=== PATIENT | female | born 1960 | race Caucasian/White ===

== ENCOUNTER 2017-02-08 07:37 | Day surgery (SDC) | payer BC ==
[2017-02-08] MEDS ORDERED: LIDOCAINE 1% W/EPI 1:200,000 MPF 30ML SQ ONE (13:41)
[2017-02-08] MEDS ORDERED: BUPIVACAINE 0.5% W/EPI MPF 30 ML VIAL IVP ONE (13:41)
[2017-02-08] MEDS ORDERED: DEXAMETHASONE PRESERVATIVE FREE 10MG/ML VIAL IV ONE (13:41)
--- NOTE | 2017-02-08 15:31 | Operative Note - Ferro ---
DATE OF SURGERY: 02/08/17 PREOPERATIVE DIAGNOSIS: CERVICAL SPONDYLOSIS WITHOUT MYELOPATHY, ICD-10 CODE = M47.812. OPERATION: FLUOROSCOPICALLY-GUIDED RADIOFREQUENCY RHIZOTOMY RIGHT CERVICAL FACETS 3/4, 4/5, AND 5/6. SURGEON: AYLIN STOVALL D.O. ANESTHESIA: LOCAL SEDATION. ANESTHESIA PROVIDER: ALVARO LA CRNA. INDICATION: This patient presents with bilateral neck pain. Examination shows diffuse tenderness cervical spine. Range of motion does cause pain to the neck with extension. Diagnostic studies show multiple levels of spondylosis. A facet series had resulted up to 75-90% pain control. Due to the failure of therapy and success of facet series, patient presents today for rhizotomy for more long- term relief. Due to the revised guidelines limiting numbers of levels and bilateral technique, she is here for the right and will return for the left. PROCEDURE: Intravenous line, vital sign monitoring, IV sedation by Anesthesia, patient position prone. Sterile prep, sterile technique. Facet levels cervical spine right at 3/4, 4/5, and 5/6 were marked and infiltrated. A 20-gauge rhizotomy cannula positioned. Stimulation trials conducted. Rhizotomy burn performed. Local with anti-inflammatory into the sites. Topical antibiotics. Sterile dressing applied. We will monitor and evaluate. cc: Dr. Rose JOB NUMBER: [id number] MTDD
[2017-02-08] MEDS ORDERED: FENTANYL PF 100MCG/2ML VIAL IV ONE (15:33)
[2017-02-08] MEDS ORDERED: LIDOCAINE 2% MDV (20MG/ML) 20ML VIAL IV ONE (15:33)
[2017-02-08] MEDS ORDERED: PROPOFOL 10 MG/ML VIAL IV ONE (15:33)
[2017-02-08] MEDS ORDERED: MIDAZOLAM HCL 2MG/2ML VIAL IV ONE (15:33)
== END 2017-02-08 09:55 | disposition home or self-care (01) ==
LOC: SUR 07:37
PROVIDERS: ATTEND Pain Medicine Interventional Pain Medicine
DX: M47.812 Spondylosis without myelopathy or radiculopathy, cervical region (principal)
CPT/HCPCS: 64635; 64636 ×2; 01936; J1100; J3010

== ENCOUNTER 2017-02-22 06:50 | Day surgery (SDC) | payer BC ==
[2017-02-22] MEDS ORDERED: LIDOCAINE 1% W/EPI 1:200,000 MPF 30ML SQ ONE (10:34)
[2017-02-22] MEDS ORDERED: DEXAMETHASONE PRESERVATIVE FREE 10MG/ML VIAL IV ONE (10:34)
[2017-02-22] MEDS ORDERED: BUPIVACAINE 0.5% W/EPI MPF 30 ML VIAL IVP ONE (10:34)
--- NOTE | 2017-02-22 14:47 | Operative Note - Ferro ---
DATE OF SURGERY: 02/22/17 PREOPERATIVE DIAGNOSIS: CERVICAL SPONDYLOSIS WITHOUT MYELOPATHY, ICD-10 CODE = M47.812. OPERATION: RADIOFREQUENCY RHIZOTOMY LEFT CERVICAL FACETS 3/4, 4/5, AND 5/6. SURGEON: AYLIN STOVALL D.O. ANESTHESIA: LOCAL SEDATION. ANESTHESIA PROVIDER: ALVARO LA CRNA. INDICATION: This patient presents with primary neck pain. Examination shows tenderness in the cervical spine. Range of motion causing pain to the neck with extension. Diagnostics show multiple levels of spondylosis. A facet series 75-90 % pain control. Due to the revised guidelines limiting the number of levels and bilateral technique, she previously had the right and is here for the left. PROCEDURE: Intravenous line, vital sign monitoring, IV sedation, prepped, draped, sterile technique. Under imaging, the cervical facet levels on the left at 3/4, 4/5, and 5/6 marked and infiltrated. A 20-gauge rhizotomy cannula positioned. Stimulation trials conducted. Rhizotomy burn performed. Local with anti-inflammatory into the sites. Topical antibiotics. Sterile dressing applied. We will monitor and evaluate. cc: Dr. Rose JOB NUMBER: [id number] MTDD
[2017-02-22] MEDS ORDERED: MIDAZOLAM HCL 2MG/2ML VIAL IV ONE (15:40)
[2017-02-22] MEDS ORDERED: *PACU ONLY* KETAMINE HCL 10 MG/ML (20ML) VIAL IV ONE (15:40)
[2017-02-22] MEDS ORDERED: PROPOFOL 10 MG/ML VIAL IV ONE (15:40)
[2017-02-22] MEDS ORDERED: FENTANYL PF 100MCG/2ML VIAL IV ONE (15:40)
== END 2017-02-22 08:46 | disposition home or self-care (01) ==
LOC: SUR 06:50
PROVIDERS: ATTEND Pain Medicine Interventional Pain Medicine
DX: M47.812 Spondylosis without myelopathy or radiculopathy, cervical region (principal)
CPT/HCPCS: 64633; 64634 ×2; 01936; J1100; J3010

== ENCOUNTER 2018-08-01 10:25 | Day surgery (SDC) | payer BC ==
--- NOTE | 2018-08-01 06:48 | History and Physical - [facility] ---
CHIEF COMPLAINT/HISTORY OF CHIEF COMPLAINT: This patient presents with a history of an intractable lumbar radiculopathy. Due to the failure of therapy, a spinal cord stimulator trial was conducted on 07/12/18 with 75+% pain control. Due to the failure of all other therapies and the success of the trial , the patient for a spinal cord stimulator implant. PAST MEDICAL HISTORY: Noncontributory. PAST SURGICAL HISTORY: Eye surgery, hand surgery, and hysterectomy. EMPLOYMENT STATUS: Off-work. MEDICATIONS ON ADMISSION: List to be provided. ALLERGIES: None to medications. FAMILY/PSYCHOSOCIAL HISTORY: Social history - Caffeine. Family history - Thyroid disease, asthma, and hypertension. SYSTEMS REVIEW: The patient is appropriate in no acute distress. The remainder of the systems review is positive for glasses, headaches, and degenerative arthritis. PHYSICAL EXAMINATION: Height is 5'8", weight is 180. Vital signs - Not available. HEENT: Within normal limits. LUNGS: Clear. HEART: Rapid and regular. ABDOMEN: Nontender. MUSCULOSKELETAL: Examination of the musculoskeletal system shows diffuse tenderness throughout the lumbar spine. Range of motion does produce pain into both lower extremities across the front and back surfaces. There are mild motor and sensory abnormalities with weakness in both legs and an assistive device is used for ambulation, somewhat more right than left. NEUROLOGIC: Cranial nerves are intact. IMPRESSION: LUMBAR RADICULOPATHY, ICD-10 CODE M54.16 AND M54.17. PLAN: The patient is here for implantation of a permanent spinal cord stimulator due to a successful trial and the failure of all other therapies. The procedure will be considered outpatient, although an overnight stay will be evaluated. The potential risks, side effects, and complications have all been carefully reviewed and discussed. JOB NUMBER: [id number] [facility]
[~2018-08-01 10:25] MED LIST: ACETAMINOPHEN 1,000 MG/100 ML BTL IV ONE; CEFAZOLIN 2 Gram 2 GM/50 ML BAG IVPB ONE; FAMOTIDINE 20MG TABLET PO ONE; MECLIZINE 25 MG TABLET PO ONE; METOCLOPRAMIDE 10 MG TABLET PO ONE
[2018-08-01] MEDS ORDERED: LIDOCAINE 1% W/EPI 1:200,000 MPF 30ML SQ ONE (10:26)
[2018-08-01] MEDS ORDERED: 0.9 % SODIUM CHLORIDE 10 ML VIAL IVP ONE (10:26)
[2018-08-01] MEDS ORDERED: MIDAZOLAM HCL 2MG/2ML VIAL IV ONE (10:26)
[2018-08-01] MEDS ORDERED: PROPOFOL 10 MG/ML VIAL IV ONE (10:26)
[2018-08-01] MEDS ORDERED: BUPIVACAINE 0.5% W/EPI MPF 30 ML VIAL IVP ONE (10:26)
[2018-08-01] MEDS ORDERED: LIDOCAINE 2% MDV (20MG/ML) 20ML VIAL IV ONE (10:26)
[2018-08-01] MEDS ORDERED: CEFAZOLIN 1G VIAL IM ONE (10:26)
[2018-08-01] MEDS ORDERED: FENTANYL PF 100MCG/2ML VIAL IV ONE (10:26)
--- NOTE | 2018-08-03 08:42 | Operative Note ---
DATE: 08/01/2018. PRIMARY CARE PHYSICIAN: Lilliana Rose M.D. PREOPERATIVE DIAGNOSIS: LUMBAR RADICULOPATHY, ICD-10 CODE M54.16 AND M54.17. ANESTHESIA: Local sedation. ANESTHESIA PROVIDER: Torey Carson CRNA. PROCEDURES: 1. Fluoroscopically guided left epidural access at T11-12. Placement of spinal cord stimulator lead 1, a [place] 16 with 16 electrodes, positioned left T7. 2. Fluoroscopically guided left epidural access at T12-L1. Placement of spinal cord stimulator lead 2, a [place] [employer] 16 with 16 electrodes, positioned right T7. 3. Complex programming of lead 1 over 20 minutes followed by complex programming of lead 2 over 20 minutes. 4. Incision, subcutaneous dissection, and anchoring of leads 1 and 2 to the supraspinous fascia with a [employer] locking anchor. 5. Incision, subcutaneous dissection, and creation of subcutaneous pouch at the right posterior gluteal margin for placement of generator identified as a [employer] programmable rechargeable WaveWriter generator. 6. Tunnelling between pouches with placement of the external portions of lead 1 and lead 2 into generator pouch, each lead interfaced to the generator. 7. Placement of generator into pouch. Placement of leads into the pouch. 8. Closure of both incisions using Stratafix suture; #2-0 for the fascia and #3 -0 for the skin. Dermabond closure. 9. Complex recovery room programming of the internal generator for home use, two stimulators, for 20 minutes. SURGEON: Prashant Trujillo D.O. INDICATIONS: This patient presents with a history of intractable pain in the back, hip, and leg. Due to the failure of therapies, a spinal cord stimulator trial was conducted with 75 percent pain control. Due to the failure of all therapies and the success of the trial, the patient presents for implantation of a permanent system. DESCRIPTION OF PROCEDURE: Intravenous lines, vital sign monitoring, and intravenous sedation. Prepped and draped with sterile technique with the patient positioned prone. Under imaging the epidural interspaces left of the midline at 11-12 and 12-1 were marked and infiltrated. Using two standard curved access Epimed needles with loss of resistance the space was accessed. At 11-1, spinal cord stimulator lead 1, a [place] [employer] 16 with 16 electrodes, was positioned left of midline at T7. With the left epidural access at 12-1, spinal cord stimulator lead 2, a [place] [employer] 16 with 16 electrodes was positioned right of T7. Complex programming of lead 1 over 20 minutes was followed by complex programming of lead 2 over 20 minutes. This resulted in complete patterns of stimulation across the back and into the legs. The patient indicated we were in all of the areas of the pain. She was then given the options to implant, continue to program, or remove. She opted to implant. The questions were repeated with the same response. The skin above and below both needles was infiltrated. An incision was made, and subcutaneous dissection was conducted to the supraspinous fascia. The needles were removed and then each lead was anchored to the supraspinous fascia with a [employer] locking anchor and nonabsorbable suture. At the right posterior gluteal margin, the site picked by the patient for the generator, the skin was infiltrated. An incision was made and subcutaneous dissection was conducted to form a pouch of suitable size and depth for the generator, a [employer] programmable rechargeable WaveWriter generator. A tunneling tool was used to carry the leads into the generator pouch, and then each lead was interfaced to the generator. Antibiotic irrigation and Bovie for hemostasis. The generator was placed into the pouch and the leads were placed into their own pouch. Both incisions were then closed using Stratafix suture; # 2-0 for the fascia and #3-0 for the skin. Dermabond closure. She was then transported to the recovery room stable with no side effects from the procedure or the sedation. When fully awake and alert, complex programming of the generator was performed over 20 minutes, re-establishing stimulation of pain control to all of the appropriate areas. She was instructed on use of the system and was provided with information on error messaging. She was then prepared for discharge. DISCHARGE INSTRUCTIONS: 1. The sites are to remain clean and dry. No showering or bathing in any way that would result in loss of integrity of the dressings. The Dermabond will allow showering, but she may not sit in a tub or water. 2. Standard medications to be resumed including the antibiotic Levaquin 500 mg once a day for 14 days. 3. She will be seen in the office in the next 24 to 48 hours since she will be returning to work within the next three to four days. We will evaluate the incisional sites at that time. 4. All other instructions were provided including numbers to contact with problems. She will be discharged by her request. JOB NUMBER: [id number] cc: Karrie Cano
--- NOTE | 2018-08-03 09:43 | RADIOLOGY REPORT ---
DATE: 08/01/2018. EXAM: THORACIC SPINE. HISTORY: Stimulator placement. TECHNIQUE: Single AP view of the thoracic spine was performed. FINDINGS: Stimulator lead tips are at the T7 level. IMPRESSION: STIMULATOR LEAD TIPS ARE AT THE T7 LEVEL. JOB NUMBER: [id number] MTDD
== END 2018-08-01 13:55 | disposition home or self-care (01) ==
LOC: SUR 10:25
PROVIDERS: ATTEND Pain Medicine Interventional Pain Medicine
DX: M54.16 Radiculopathy, lumbar region (principal); M54.17 Radiculopathy, lumbosacral region
CPT/HCPCS: 63650; 63685; 01936; 95972; 72020; J3010; J0690; C1820; C1883